=== PATIENT | female | born 1940 | race Caucasian/White ===

== ENCOUNTER 2017-07-18 13:33 | Emergency (ER) | payer MEDICARE, BC ==
[2017-07-18 14:31] LABS: #Basophils 0.1 thou/uL (0.0-0.2); #Eosinphils 0.2 thou/uL (0.0-0.7); #Lymphocytes 3.2 thou/uL (1.20-3.40); #Monocytes 0.6 thou/uL (0.11-0.59); #Neutrophils 5.2 thou/uL (1.40-6.50); %Basophils 0.9 % (0.0-1.0); %Eosinophils 1.8 % (0.0-10.0); %Lymphocytes 34.8 % (21.0-51.0); Hematocrit 41.7 % (36.0-47.0); Mean Platelet Volume 8.5 fL (7.4-10.4); White Blood Cell (WBC) Count 9.3 thou/uL (4.8-10.8)
[2017-07-18 14:56] LABS: ALT (SGPT) 20 U/L (8-55); AST (SGOT) 20 U/L (5-34); Alkaline Phosphatase 75 U/L (40-150); Anion Gap 11 mmol/L (10-20); BUN (Urea Nitrogen) 13 mg/dL (9.8-20.1); Bilirubin, Total 0.3 mg/dL (0.2-1.2); CK (CPK) 40 U/L (29-168); Calc. Creatinine Clearance 0 mL/min (70-130); Calcium 10.6 mg/dL (7.8-10.44); Carbon Dioxide 29 mmol/L (23-31); Chloride 102 mmol/L (98-107); Estimated GFR-MDRD 80; Globulin 2.9 g/dL (2.4-3.5)
[2017-07-18 14:58] LABS: Troponin I Less than 0.010 ng/mL (< 0.028)
--- NOTE | 2017-07-18 15:09 | ULT ---
LEFT LOWER EXTREMITY VENOUS DUPLEX SONOGRAM: HISTORY: Left leg pain and edema. FINDINGS: The left common femoral vein and greater saphenous junction were evaluated along with the femoral, d eep femoral, popliteal, and posterior tibial veins. There is good color and spectral Doppler flow, compression, and augmentation. IMPRESSION: No sonographic evidence of deep vein thrombosis within the left lower extremity. POS: [facility]
--- NOTE | 2017-07-21 06:41 | EKG ---
Test Reason : Blood Pressure : / mmHG Vent. Rate : 067 BPM Atrial Rate : 067 BPM P-R Int : 178 ms QRS Dur : 086 ms QT Int : 376 ms P-R-T Axes : 045 -32 010 degrees QTc Int : 397 ms Normal sinus rhythm Left axis deviation Anterior infarct , age undetermined Abnormal ECG Confirmed by AUGUSTUS DURAN, QUINTEN ([id number]), editorial manager MICHEAL LOU ([id number]) on 07/21/2017 6:41:29 AM Referred By: Confirmed By:QUINTEN COFFMAN MD
== END 2017-07-18 15:22 | disposition home or self-care (01) ==
LOC: ERS 13:33
DX: M79.662 Pain in left lower leg (principal); Z79.82 Long term (current) use of aspirin; Z79.899 Other long term (current) drug therapy
CPT/HCPCS: 36415; 80053; 82553; 84484; 85025; 93005